=== PATIENT | female | born 1950 | race Caucasian/White ===

== ENCOUNTER 2019-04-01 23:31 | Emergency (ER) | payer MEDICARE, MEDICAID ==
[~2019-04-01] VITALS: Ht 149.9 cm; Wt 73.0 kg
[2019-04-02] MEDS ORDERED: ACETAMINOPHEN 650MG/20.3ML UDC PO ONE (02:00)
[2019-04-02 02:31] VITALS: BP 132/82
== END 2019-04-02 02:38 | disposition home or self-care (01) ==
LOC: ER 23:31
DX: S09.8XXA Other specified injuries of head, initial encounter (principal); E11.9 Type 2 diabetes mellitus without complications; E78.00 Pure hypercholesterolemia, unspecified; I10 Essential (primary) hypertension; E05.90 Thyrotoxicosis, unspecified without thyrotoxic crisis or storm; W18.39XA Other fall on same level, initial encounter; Y93.89 Activity, other specified; Y92.89 Other specified places as the place of occurrence of the external cause; Y99.8 Other external cause status
CPT/HCPCS: 99284